=== PATIENT | male | born 1970 | race Hispanic/Latino ===

== ENCOUNTER 2017-07-03 16:53 | Emergency (ER) | payer OTHER ==
[~2017-07-03] VITALS: Ht 177.8 cm; Wt 97.7 kg
[2017-07-03] MEDS ORDERED: ASPIRIN 81 MG CHEW TABLET PO ONE (17:15)
[2017-07-03] MEDS ORDERED: LISI20TA PO (17:22)
[2017-07-03 18:01] LABS: BASO # 0.1 10^3/uL (0.0-0.2); BASO % 0.7 % (0.0-1.0); EOS # 0.2 10^3/uL (0.0-0.50); EOS % 2.6 % (0.0-3.0); IMMATURE GRANULOCYTE % 0.7 % (0-0); LYMPH # 2.2 10^3/uL (1.5-4.5); LYMPH % 24.3 % (24.0-44.0); MEAN CORPUSCULAR HGB CONC 34.5 g/dl (32.0-36.5); MEAN CORPUSCULAR VOLUME 81.4 fl (80.0-96.0); MONO # 0.7 10^3/uL (0.0-0.8); MONO % 7.3 % (0.0-5.0); NEUTROPHILS # 5.9 10^3/uL (1.8-7.7); NEUTROPHILS % 64.4 % (36.0-66.0); PLATELET COUNT, AUTOMATED 251 10^3/uL (150-450); RED CELL DISTRIBUTION WIDTH 12.5 % (11.5-14.5); WHITE BLOOD COUNT 9.2 10^3/uL (4.0-10.0)
[2017-07-03 18:14] LABS: ADD MORPHOLOGY? NO
--- NOTE | 2017-07-03 18:18 | REP ---
Portable chest, 05:22 p.m., single AP view, patient sitting: There are no comparisons. The lung alvarado are clear. The cardiac size is normal. The audrey, mediastinum, and bony thorax are unremarkable. Impression: Negative portable chest. Signed by José Luis Rudd MD 07/03/2017 06:09 P
[2017-07-03 18:24] LABS: ANION GAP 8 MEQ/L (8-16); BLOOD UREA NITROGEN 13 MG/DL (7-18); CALCIUM LEVEL 9.4 MG/DL (8.5-10.1); CARBON DIOXIDE LEVEL 27 MEQ/L (21-32); CHLORIDE LEVEL 100 MEQ/L (98-107); CREATININE FOR GFR 0.87 MG/DL (0.70-1.30); GLOMERULAR FILTRATION RATE > 60.0 (>60); GLUCOSE, FASTING 87 MG/DL (70-105); POTASSIUM SERUM 3.5 MEQ/L (3.5-5.1); SODIUM LEVEL 135 MEQ/L (136-145)
[2017-07-03 20:05] VITALS: BP 142/76
--- NOTE | 2017-07-04 06:28 | ECGEPIP ---
Stationary ECG Study [facility] - ED Test Date: 2017-07-03 Pat Name: FREDO KESSLER Department: Room: - Gender: M [employer]: af : 1970 Requested By: IDA Zhang Order Number: [id number] Reading MD: George Garcia Measurements Intervals [place] Rate: 74 P: 34 UT: 161 QRS: 44 QRSD: 110 T: -7 QT: 380 QTc: 423 Interpretive Statements SINUS RHYTHM POSSIBLE PRIOR INFERIOR INFARCT NSTTW ABNORMALITIES NO PRIORS Electronically Signed On 07-04-2017 6:28:10 EDT by George Garcia
== END 2017-07-03 20:39 | disposition home or self-care (01) ==
LOC: M ED 16:53
DX: R07.9 Chest pain, unspecified (principal); I10 Essential (primary) hypertension; G47.33 Obstructive sleep apnea (adult) (pediatric)

== ENCOUNTER 2018-04-12 20:30 | Emergency (ER) | payer OTHER | END 2018-04-12 22:49 | disposition home or self-care (01) | LOC: M ED 20:30 | DX: M76.62 Achilles tendinitis, left leg (principal); I10 Essential (primary) hypertension; Z79.899 Other long term (current) drug therapy | CPT/HCPCS: 73610 ==

== ENCOUNTER 2018-10-31 14:59 | Emergency (ER) | payer OTHER ==
[~2018-10-31] VITALS: Ht 177.8 cm; Wt 95.5 kg
[~2018-10-31 14:59] MED LIST: FISH1000; IBUP-1022 PO; LISI20TA PO
[2018-10-31] MEDS ORDERED: IBUP80TA (15:07)
[2018-10-31] MEDS ORDERED: LISI-538 (15:07)
[2018-10-31] MEDS ORDERED: ASPI81CH30 (15:07)
[2018-10-31] MEDS ORDERED: GABA-843 (15:07)
[2018-10-31] MEDS ORDERED: ALLO100T (15:07)
[2018-10-31] MEDS ORDERED: HYDR12CA (15:07)
[2018-10-31] MEDS ORDERED: RANI15TA PO (17:28)
[2018-10-31] MEDS ORDERED: PRED20TA PO (17:28)
[2018-10-31 17:30] VITALS: BP 125/75
[2018-10-31] MEDS ORDERED: predniSONE 20 MG TAB PO ONE (17:30)
== END 2018-10-31 17:34 | disposition home or self-care (01) ==
LOC: M ED 14:59
DX: M1A.0710 Idiopathic chronic gout, right ankle and foot, without tophus (tophi) (principal); I10 Essential (primary) hypertension; M19.079 Primary osteoarthritis, unspecified ankle and foot; Z79.899 Other long term (current) drug therapy; Z79.82 Long term (current) use of aspirin

== ENCOUNTER 2019-05-24 18:15 | Emergency (ER) | payer OTHER, SELFPAY ==
[~2019-05-24] VITALS: Ht 177.8 cm; Wt 98.1 kg
[~2019-05-24 18:15] MED LIST changes: +ALLO100T; +GABA-843; +GOOD81CH2; +HYDR12CA; +IBUP80TA; +LISI-538; -LISI20TA PO; +LISI20TA19 PO; +PRED20TA PO; +RANI15TA PO
[2019-05-24] MEDS ORDERED: LIDO5OIN19 (18:25)
[2019-05-24] MEDS ORDERED: VOLT1GEL15 (18:25)
[2019-05-24] MEDS ORDERED: LISI-538 PO (18:25)
[2019-05-24] MEDS ORDERED: CAPS0.022 (18:25)
[2019-05-24] MEDS ORDERED: diphenhydrAMINE INJ 50MG/ML VIAL (J1200) IV ONE (18:45)
[2019-05-24] MEDS ORDERED: dexameTHASONE 20 MG/5 ML VIAL (J1100) IV ONE (18:45)
[2019-05-24] MEDS ORDERED: FAMOTIDINE INJ 20MG/2ML VIAL (S0028) IVP ONE (18:45)
[2019-05-24 19:30] VITALS: BP 139/86
== END 2019-05-24 19:47 | disposition home or self-care (01) ==
LOC: M ED 18:15
DX: T63.441A Toxic effect of venom of bees, accidental (unintentional), initial encounter (principal); X58.XXXA Exposure to other specified factors, initial encounter; Y92.89 Other specified places as the place of occurrence of the external cause; I10 Essential (primary) hypertension; M10.9 Gout, unspecified; Z79.899 Other long term (current) drug therapy
CPT/HCPCS: 96374; 96375; 99284; J1100; J1200

== ENCOUNTER → 2020-08-03 | Outpatient (REF) ==
[~2020-08-03] MED LIST changes: +CAPS0.022; +LIDO5OIN19; +LISI-538 PO; -LISI20TA19 PO; +LISI20TA35 PO; +VOLT1GEL15
[2020-08-04 10:08] LABS: HERPES ZOSTER, VARICELLA IgG >4000 index (Immune >165); RUBEOLA IgG ANTIBODY >300.0 AU/mL (Immune >16.4)
== END ==
LOC: M LAB 11:11
PROVIDERS: ATTEND Nurse Practitioner Adult Health
DX: Z02.89 Encounter for other administrative examinations (principal)

== ENCOUNTER → 2023-09-20 | Outpatient (REF) ==
[~2023-09-20] MED LIST changes: +ASPI-663; +GABA-282; -GABA-843; -GOOD81CH2; -LISI-538; -LISI-538 PO; +LISI20TA33; +LISI20TA33 PO
== END ==
LOC: M EMP 10:43
PROVIDERS: ATTEND Family Medicine
DX: Z11.52 Encounter for screening for COVID-19 (principal)

== ENCOUNTER → 2024-02-14 | Outpatient (REF) | payer OTHER ==
[2024-02-14 18:37] LABS: APPEARANCE, URINE CLEAR (CLEAR); BACTERIA, URINE AUTO NEGATIVE (NEGATIVE); BILIRUBIN, URINE AUTO NEGATIVE (NEGATIVE); BLOOD, URINE BLOOD NEGATIVE (NEGATIVE); COLOR, URINE COLORLESS (YELLOW); GLUCOSE, URINE (UA) AUTO NEGATIVE (NEGATIVE); KETONE, URINE AUTO NEGATIVE (NEGATIVE); LEUKOCYTE ESTERASE, URINE AUTO NEGATIVE (NEGATIVE); NITRITE, URINE AUTO NEGATIVE (NEGATIVE); PROTEIN, URINE AUTO NEGATIVE (NEGATIVE); RBC, URINE AUTO 0 /HPF (0-3); SPECIFIC GRAVITY URINE AUTO 1.005 (1.002-1.035); SQUAMOUS EPITHELIAL CELL UR AU 0 /HPF (0-6); UROBILINOGEN, URINE AUTO 0.2 mg/dL (0.0-2.0); WBC, URINE AUTO 0 /HPF (0-3)
== END ==
LOC: M SMT 17:11
PROVIDERS: ATTEND Nurse Practitioner Family
DX: N50.811 Right testicular pain (principal)